=== PATIENT | male | born 1975 | race Caucasian/White ===

== ENCOUNTER 2017-07-27 12:06 | Emergency (ER) | payer OTHER ==
[2017-07-27 12:15] VITALS: BP 128/77; PULSE 76; RESP 16; TEMP 98.2; O2SAT 98
--- NOTE | 2017-07-27 12:58 | C.PDOC ---
History Of Present Illness 42 y/o male c/o right leg pain radiating to foot x 2 days worse with walking and sitting, with no hx trauma or fall. no heavy lifting. denies urinary and bladder dysfunction, no saddle anesthesia. no prolonged immobilization. no cp or sob. no leg swelling. pt also has right lower back pain. Time Seen by Provider: 07/27/17 12:32 Chief Complaint (Nursing): Lower Extremity Problem/Injury History Per: Patient, Family History/Exam Limitations: no limitations Onset/Duration Of Symptoms: Days (2) Current Symptoms Are (Timing): Still Present Severity: Mild Recent travel outside of the [place]: No Past Medical History Vital Signs: Last Vital Signs Temp 98.2 F 07/27/17 12:11 Pulse 76 07/27/17 12:11 Resp 16 07/27/17 12:11 BP 128/77 07/27/17 12:11 Pulse Ox 98 07/27/17 14:53 - Medical History PMH: Gastritis Denies: Chronic Kidney Disease Other PMH: etoh use - [facility] Procedures ALCOHOL DETOXIFICATION (03/23/14) Family History: States: Unknown Family Hx - Social History Hx Tobacco Use: No Hx Alcohol Use: Yes Hx Substance Use: No - Immunization History Hx Tetanus Toxoid Vaccination: No Hx Influenza Vaccination: No Hx Pneumococcal Vaccination: No Review Of Systems Constitutional: Negative for: Fever, Chills Cardiovascular: Negative for: Chest Pain Respiratory: Negative for: Shortness of Breath Gastrointestinal: Negative for: Vomiting, Abdominal Pain Musculoskeletal: Positive for: Back Pain, Leg Pain, Foot Pain Skin: Positive for: Bruising (small area dorsum right foot). Negative for: Rash Neurological: Negative for: Weakness, Numbness Physical Exam - Physical Exam Appears: Non-toxic, No Acute Distress Skin: Warm, Dry, Ecchymosis (1 cm area ecchymosis to dorsum right foot near 3/4 toes) Gastrointestinal/Abdominal: Soft, No Tenderness Back: Normal Inspection, No Vertebral Tenderness, Paraspinal Tenderness (right lumbar area), No Straight Leg Raising Extremity: Capillary Refill (less than 2 seconds), Other (tender to right lateral thigh, lateral calf and dorsum of right foot, no swelling, neg homans ) Pulses: Left Femoral: Normal, Right Femoral: Normal, Left Dorsalis Pedis: Normal , Right Dorsalis Pedis: Normal Neurological/Psych: Oriented x3, Normal Speech, Normal Cognition, Normal Motor, Normal Sensation ED Course And Treatment O2 Sat by Pulse Oximetry: 98 Medical Decision Making Medical Decision Making: xray foot neg, pain dec after toradol. f/u med clinic, d/c with nsaids. Disposition Counseled Patient/Family Regarding: Studies Performed, Diagnosis, Need For Followup, Rx Given - Disposition Referrals: [facility] [Outside] Disposition: HOME/ ROUTINE Disposition Time: 14:56 Condition: IMPROVED Additional Instructions: [place] Tylenol segn lo prescrito. Seguimiento en la clnica mdica la prxima semana: llame para programar vinay ezra. Evite levantar objetos pesados. Regrese a la macario de urgencias por cualquier dolor peorTake Tylenol as prescribed. Follow up in medical clinic next week- call for appointment. Avoid heavy lifting. Return to ER for any worse pain. Prescriptions: Acetaminophen [Tylenol 325mg tab] 650 mg PO Q6 #30 tab Instructions: Sciatica (DC) Forms: [employer] Connect (Panamanian), Gen Discharge Inst Panamanian - Clinical Impression Clinical Impression: Sciatica of right side
--- NOTE | 2017-07-27 14:34 | RAD ---
PROCEDURE: Right Foot Radiographs. HISTORY: pain dorsum foot near toes 3-4 COMPARISON: None. FINDINGS: BONES: No fracture identified. JOINTS: No dislocation seen. Bony articulations appear maintained. SOFT TISSUES: Unremarkable OTHER FINDINGS: None. IMPRESSION: No fracture or dislocation identified.
== END 2017-07-27 15:08 | disposition home or self-care (01) ==
LOC: C.ER 12:06
DX: M54.31 Sciatica, right side (principal)
CPT/HCPCS: 73630; 96372; 99283; J1885